=== PATIENT | male | born 1980 | race Caucasian/White ===

== ENCOUNTER 2017-05-16 12:26 | Emergency (ER) | payer OTHER, MEDICAID ==
[2017-05-16] MEDS: ACETAMINOPHEN 325 MG TAB PO (13:30)
[2017-05-16 13:31] LABS: INFLUENZA A AMPLIFICATION NEGATIVE (NEGATIVE); INFLUENZA B AMPLIFICATION POSITIVE (NEGATIVE)
[2017-05-16] MEDS: OSELTAMIVIR PHOSPHATE 75 MG CAP (TAMIFLU) PO (14:14)
== END 2017-05-16 14:27 | disposition home or self-care (01) ==
LOC: M ED 12:26
DX: J10.1 Influenza due to other identified influenza virus with other respiratory manifestations (principal); Z87.891 Personal history of nicotine dependence
CPT/HCPCS: 87502

== ENCOUNTER → 2017-05-25 | Outpatient (REF) | LOC: M LAB 09:42 | DX: Z01.89 Encounter for other specified special examinations ==